=== PATIENT | male | born 1965 | race Two or more races ===

== ENCOUNTER 2016-09-26 13:18 | Emergency (ER) | payer MEDICAID ==
[~2016-09-26] VITALS: Ht 172.7 cm; Wt 81.6 kg
[~2016-09-26 13:18] MED LIST: ATIVAN0.5 MG ORAL; BACTRIM DS TAB1 EAC1 ORAL; BENADRYL25 MG ORAL; KEFLEX500 MG ORAL; NKM
[2016-09-26 13:45] VITALS: BP 128/86
[2016-09-26] MEDS ORDERED: Acetaminophen 500mg (ES) tab ORAL ONE (14:30)
[2016-09-26] MEDS: Metoclopramide 10mg/2ml Inj IM ONE ×2 (14:35→14:39)
--- NOTE | 2016-09-26 15:05 | Emergency Room Report ---
History of Present Illness General Chief Complaint: Headache Source: Patient Present Illness HPI 51-year-old male presents emergency department complaining of intermittent pulsatile 10 out of 10 in severity left-sided headache x2 days. Patient states he had a history of migraines in the past but was never actually diagnosed by neurologist. Patient states he took Motrin yesterday however headache returned. Patient denies sudden onset of the headache he states it was progressive in nature denies nausea, vomiting, recent trauma or fall denies weakness, fevers, chills, neck pain/stiffness or recent illness. Patient denies other associated signs or symptoms. Denies photophobia. Denies CP, Palpitations, LOC, AMS, dizziness, Changes in Vision, Sensation, paresthesias, or a sudden severe headache. Allergies: Coded Allergies: No Known Allergies (Unverified , 05/28/12) Patient History Past Medical History: see triage record Past Surgical History: none Pertinent Family History: none Immunizations: UTD Reviewed Nursing Documentation: PMH: Agreed, PSxH: Agreed Nursing Documentation-PMH Hx Cardiac Problems: No Hx Hypertension: No Hx Pacemaker: No Hx Asthma: No Hx COPD: No Hx Diabetes: No Hx Cancer: No Hx Gastrointestinal Problems: Yes - HEARTBURN Hx Dialysis: No Hx Neurological Problems: No Hx Cerebrovascular Accident: No Hx Seizures: No Review of Systems All Other Systems: negative except mentioned in HPI Physical Exam Vital Signs Date Time Temp Pulse Resp B/P Pulse Ox O2 Delivery O2 Flow Rate FiO2 09/26/16 13:45 98.2 57 15 128/86 99 Room Air Sp02 EP Interpretation: reviewed, normal General Appearance: no apparent distress, alert, GCS 15, non-toxic Head: normocephalic, atraumatic Eyes: bilateral eye PERRL, bilateral eye normal inspection ENT: hearing grossly normal, normal pharynx, no angioedema, normal voice Neck: full range of motion, no meningismus, no bony tend, supple/symm/no masses Respiratory: lungs clear, normal breath sounds, speaking full sentences Cardiovascular #1: regular rate, rhythm, no edema Musculoskeletal: back normal, gait/station normal, normal range of motion, non- tender Neurologic: alert, oriented x3, responsive, motor strength/tone normal, sensory intact, cerebellar normal, normal gait, speech normal, no pronator, other - negative hoffmans, no facial droop, equal farm agent strength. Psychiatric: judgement/insight normal, memory normal, mood/affect normal Skin: normal color, no rash, warm/dry, well hydrated Medical Decision Making PA Attestation Dr. españa is my supervising Physician whom patient management has been discussed with. Diagnostic Impression: Primary Impression: Headache Qualified Codes: R51 - Headache ER Course 51-year-old male presents emergency department complaining of intermittent pulsatile 10 out of 10 in severity left-sided headache x2 days. Patient states he had a history of migraines in the past but was never actually diagnosed by neurologist. Patient states he took Motrin yesterday however headache returned. Patient denies sudden onset of the headache he states it was progressive in nature denies nausea, vomiting, recent trauma or fall denies weakness, fevers, chills, neck pain/stiffness or recent illness. Patient denies other associated signs or symptoms. Denies photophobia. Denies CP, Palpitations, LOC, AMS, dizziness, Changes in Vision, Sensation, paresthesias, or a sudden severe headache. Ddx considered but are not limited to migraine, SAH, Psedudo motor Cerebri, Mass lesion, Cluster CABRAL, Tension CABRAL, Post lumbar puncture CABRAL. Vital signs: are WNL, pt. is afebrile H&PE are most consistent with CABRAL no focal neurological deficit, non-acute onset , no hx of trauma ORDERS: - CT imaging not warranted at this time given pt. HPI and normal neurological examination. ED INTERVENTIONS: - Patient declines Reglan and Tylenol. Patient states that he does not currently have a headache and that he would rather have prescription to take the medication at home if his headache returns. - D/W pt. recommend follow up with neurologist , and to return to the ED promptly with worsening or new symptoms, d/w pt. red flag symptoms to keep an eye out for that would indicate emergent condition and would require return to ED. DISCHARGE: At this time pt. is stable for d/c to home with close outpatient followup . Will provide printed patient care instructions, and any necessary prescriptions. Care plan and follow up instructions have been discussed with the patient prior to discharge. Last Vital Signs Date Time Temp Pulse Resp B/P Pulse Ox O2 Delivery O2 Flow Rate FiO2 09/26/16 13:45 98.2 57 15 128/86 99 Room Air Disposition: HOME, SELF-CARE Condition: Stable Scripts Acetaminophen (Tylenol) 325 Mg Tablet 650 MG ORAL Q6H, #30 TAB 0 Refills Prov: Neetu Gilbert 09/26/16 Metoclopramide Hcl* (REGLAN*) 10 Mg Tablet 10 MG ORAL THREE TIMES A DAY Y for For Headache, #9 TAB Prov: Neetu Gilbert 09/26/16 Patient Instructions: General Headache Without Cause, Migraine Headache Additional Instructions: Take medications as directed. Follow up with NEUROLOGIST within 3 days , also follow up with your primary care doctor. Return sooner to ED if new symptoms occur, or current symptoms become worse. - Please note that this Emergency Department Report was dictated using [employer] kindergarten teacher technology software, occasionally this can lead to erroneous entry secondary to interpretation by the dictation equipment. Neetu Gilbert Sep 26, 2016 15:05
[2016-09-26] MEDS ORDERED: TYLENOL325 MG ORAL (15:06)
[2016-09-26] MEDS ORDERED: REGLAN10 MG ORAL (15:06)
[2016-09-26 15:23] VITALS: BP 132/82
== END 2016-09-26 15:24 | disposition home or self-care (01) ==
LOC: EMR 15:00
DX: R51 Headache (principal)
CPT/HCPCS: 99284; J2765

== ENCOUNTER 2017-03-23 20:01 | Emergency (ER) | payer MEDICAID ==
[~2017-03-23] VITALS: Ht 172.7 cm; Wt 83.5 kg
[~2017-03-23 20:01] MED LIST changes: +REGLAN10 MG ORAL; +TYLENOL325 MG ORAL
[2017-03-23 20:14] VITALS: BP 146/98
[2017-03-23] MEDS ORDERED: PREDNISONE20 MG ORAL (20:28)
[2017-03-23] MEDS ORDERED: ALBUTEROL SULF8.5 GM INH (20:28)
[2017-03-23] MEDS ORDERED: PROMETHAZINE-C118 M1 ORAL (20:28)
[2017-03-23 20:37] VITALS: BP 146/98
--- NOTE | 2017-03-23 22:10 | Emergency Room Report ---
History of Present Illness General Chief Complaint: Upper Respiratory Illness Source: Patient Present Illness HPI 52-year-old male presents to ED for evaluation. States the last 2 days he's been having a cough. Cough is dry. Notes soreness in his chest after coughing. /10, throbbing. Nonradiating. Denies fevers or chills. Denies chest pain. Denies shortness of breath. Denies sick contacts or recent travel. No other aggravating relieving factors. Denies any other associated symptoms Allergies: Coded Allergies: No Known Allergies (Unverified , 05/28/12) Patient History Past Medical History: GERD Past Surgical History: none Pertinent Family History: none Social History: Denies: smoking, alcohol use, drug use Immunizations: UTD Reviewed Nursing Documentation: PMH: Agreed, PSxH: Agreed Nursing Documentation-PMH Past Medical History: No Stated History Hx Cardiac Problems: No Hx Hypertension: No Hx Pacemaker: No Hx Asthma: No Hx COPD: No Hx Diabetes: No Hx Cancer: No Hx Gastrointestinal Problems: Yes - HEARTBURN Hx Dialysis: No Hx Neurological Problems: No Hx Cerebrovascular Accident: No Hx Seizures: No Review of Systems All Other Systems: negative except mentioned in HPI Physical Exam Vital Signs Date Time Temp Pulse Resp B/P (MAP) Pulse Ox O2 Delivery O2 Flow Rate FiO2 03/23/17 20:10 97.5 77 14 146/98 100 Room Air 03/23/17 20:14 100 Sp02 EP Interpretation: reviewed, normal General Appearance: no apparent distress, alert, GCS 15, non-toxic Head: normocephalic, atraumatic Eyes: bilateral eye normal inspection, bilateral eye PERRL ENT: hearing grossly normal, normal pharynx, no angioedema, normal voice Neck: full range of motion, supple/symm/no masses Respiratory: chest non-tender, lungs clear, normal breath sounds, speaking full sentences Cardiovascular #1: regular rate, rhythm, no edema Cardiovascular #2: 2+ carotid (R), 2+ carotid (L), 2+ radial (R), 2+ radial (L) , 2+ dorsalis pedis (R), 2+ dorsalis pedis (L) Gastrointestinal: normal bowel sounds, non tender, soft, non-distended, no guarding, no rebound Rectal: deferred Genitourinary: normal inspection, no CVA tenderness Musculoskeletal: back normal, gait/station normal, normal range of motion, non- tender Neurologic: alert, oriented x3, responsive, motor strength/tone normal, sensory intact, speech normal Psychiatric: judgement/insight normal, memory normal, mood/affect normal, no suicidal/homicidal ideation Reflexes: 3+ bicep (R), 3+ bicep (L), 3+ tricep (R), 3+ tricep (L), 3+ knee (R) , 3+ knee (L) Skin: normal color, no rash, warm/dry, well hydrated Lymphatic: no adenopathy Medical Decision Making Diagnostic Impression: Primary Impression: Bronchitis ER Course Hospital Course 52-year-old male presents to ED complaining of cough Differential diagnoses include: URI, pharyngitis, otitis media, asthma Clinical course Patient placed on stretcher. After initial history, physical exam reveals a middle aged male in no acute distress. Bilateral TM unremarkable. No pharyngeal erythema. No tonsillar exudates. No lymphadenopathy. lungs clear. abdomen soft. Clinical findings consistent with bronchitis. reassuance given Diagnosis - bronchitis Stable and discharged home with Rx Promethazine/codeine, albuterol, prednisone. Instructed to followup with PMD. Return to ED if symptoms recur or worsen Last Vital Signs Date Time Temp Pulse Resp B/P (MAP) Pulse Ox O2 Delivery O2 Flow Rate FiO2 03/23/17 20:37 97.5 77 14 146/98 100 Room Air 100 Status: improved Disposition: HOME, SELF-CARE Condition: Stable Scripts Codeine/Promethazine Hcl* (PROMETHAZINE-CODEINE SYRUP*) 118 Ml Syrup 5 ML ORAL Q4H Y for For Cough, #118 ML 0 Refills Prov: JOE ALLEN M.D. 03/23/17 Prednisone* (PREDNISONE*) 20 Mg Tablet 40 MG ORAL DAILY, #10 TAB Prov: JOE ALLEN M.D. 03/23/17 Albuterol Sulfate* (ALBUTEROL SULFATE MDI*) 8.5 Gm Hfa.aer.ad 2 PUFF INH Q6H, #1 EA 0 Refills Prov: JOE ALLEN M.D. 03/23/17 Referrals: [facility],REFERRING (PCP) Patient Instructions: Acute Bronchitis, [id number] JOE ALLEN M.D. Mar 23, 2017 22:10
== END 2017-03-23 20:37 | disposition home or self-care (01) ==
LOC: EMR 20:18
DX: J40 Bronchitis, not specified as acute or chronic (principal); K21.9 Gastro-esophageal reflux disease without esophagitis
CPT/HCPCS: 99283

== ENCOUNTER 2017-09-17 13:52 | Emergency (ER) | payer MEDICAID ==
[~2017-09-17] VITALS: Ht 172.7 cm; Wt 77.1 kg
[~2017-09-17 13:52] MED LIST changes: +ALBUTEROL SULF8.5 GM INH; +PREDNISONE20 MG ORAL; +PROMETHAZINE-C118 M1 ORAL
[2017-09-17 14:00] VITALS: BP 137/87
--- NOTE | 2017-09-17 14:20 | Emergency Room Report ---
History of Present Illness General Chief Complaint: Abdominal Pain Source: Patient Present Illness HPI Patient 52-year-old male who presented after increased abdominal discomfort. Patient reported having the onset of symptoms approximately 2 days prior to arrival. He had associated nausea on the first day. He says he began having diarrhea. He denies any hematemesis or bloody stools. Patient reports having a improvement in the diarrhea however he continued to have some normal cramping. The pain is moderate in nature. He denies any dizziness or lightheadedness this time. He denies recent antibiotic use or travel.The patient stated that he had been able to tolerate oral fluids. Allergies: Coded Allergies: No Known Allergies (Unverified , 09/17/17) Patient History Past Medical History: see triage record Reviewed Nursing Documentation: PMH: Agreed; PSxH: Agreed Nursing Documentation-PMH Past Medical History: No Stated History Review of Systems All Other Systems: negative except mentioned in HPI Physical Exam Vital Signs Date Time Temp Pulse Resp B/P (MAP) Pulse Ox O2 Delivery O2 Flow Rate FiO2 09/17/17 13:56 97.6 72 18 137/87 98 Room Air 97.5 General Appearance: well appearing, no apparent distress, alert, GCS 15, non- toxic Head: normocephalic, atraumatic ENT: hearing grossly normal, normal voice Neck: full range of motion, supple Respiratory: lungs clear, normal breath sounds, no rhonchi, no respiratory distress, speaking full sentences Cardiovascular #1: normal inspection, normal peripheral pulses, regular rate, rhythm Gastrointestinal: normal inspection Musculoskeletal: normal inspection, back normal, digits/nails normal, no calf tenderness Neurologic: normal inspection, alert, oriented x3, normal gait Psychiatric: normal inspection, mood/affect normal Skin: no rash Medical Decision Making Diagnostic Impression: Primary Impression: Enteritis ER Course Patient presented for abdominal pain. Differential diagnoses included ischemic bowel, appendicitis, perforated viscus, abdominal aortic aneurysm, inferior myocardial infarction, viral gastroenteritis. Patient has a benign exam and does not appear to require any further imaging or laboratory testing at this time. Patient does not appear to have any evidence of surgical illness this time. Patient's urinalysis showed no evidence of urinary infection. Patient's dysuria is likely related to have some colitis. Patient was advised to stop taking any dairy for the next few days. The patient was advised to return if he began having worsening pain persistent vomiting or other concerns.The patient is advised to follow up with primary care doctor in 1-2 days. Patient is advised to return if any worsening condition or if any changes in status that are concerning. This report is dictated with [employer] machine hostler software which may occasionally lead to discrepancies related to use of this software. Labs Test 09/17/17 14:20 Urine Color Yellow Urine Appearance Clear Urine pH 6 (4.5-8.0) Urine Specific [place] 1.020 (1.005-1.035) Urine Protein 1+ (NEGATIVE) Urine Glucose (UA) Negative (NEGATIVE) Urine Ketones Negative (NEGATIVE) Urine Occult Blood 3+ (NEGATIVE) Urine Nitrite Negative (NEGATIVE) Urine Bilirubin Negative (NEGATIVE) Urine Urobilinogen Normal MG/DL (0.0-1.0) Urine Leukocyte Esterase Negative (NEGATIVE) Urine RBC 0-2 /HPF (0 - 0) Urine WBC 0-2 /HPF (0 - 0) Urine Squamous Epithelial Cells None /LPF (NONE/OCC) Urine Bacteria None /HPF (NONE) Last Vital Signs Date Time Temp Pulse Resp B/P (MAP) Pulse Ox O2 Delivery O2 Flow Rate FiO2 09/17/17 14:00 97.5 72 18 137/87 98 Room Air 97.5 Status: improved Disposition: HOME, SELF-CARE Condition: Stable Scripts Dicyclomine Hcl* (DICYCLOMINE HCL*) 10 Mg Capsule 10 MG PO QID, #20 CAP Prov: Carlos Guerin MD 09/17/17 Metronidazole* (FLAGYL*) 500 Mg Tablet 500 MG ORAL THREE TIMES A DAY, #21 TAB 0 Refills Prov: Carlos Guerin MD 09/17/17 Carlos Guerin MD Sep 17, 2017 14:20
[2017-09-17] MEDS ORDERED: Dicyclomine HCl 10mg/5ml oral soln ORAL ONE (14:30)
[2017-09-17 14:49] LABS: APPEARANCE,URINE CLEAR; BILIRUBIN, URINE NEGATIVE (NEGATIVE); GLUCOSE, URINE (UA) NEGATIVE (NEGATIVE); KETONES,URINE NEGATIVE (NEGATIVE); LEUKOCYTE ESTERASE ,URINE NEGATIVE (NEGATIVE); NITRITE,URINE NEGATIVE (NEGATIVE); PH,URINE 6 (4.5-8.0); PROTEIN,URINE 1+ (NEGATIVE); UROBILINOGEN,URINE NORMAL MG/DL (0.0-1.0)
[2017-09-17 14:55] LABS: COLOR,URINE YELLOW
[2017-09-17] MEDS ORDERED: DICYCLOMINE HCL10 MG PO (15:30)
[2017-09-17] MEDS ORDERED: FLAGYL500 MG ORAL (15:30)
[2017-09-17 15:38] VITALS: BP_SYST 129; BP_SYST 137; BP_DIAS 78; BP_DIAS 87
== END 2017-09-17 15:38 | disposition home or self-care (01) ==
LOC: EMR 14:31 → MERGE 14:31 → EMR 15:38
DX: K52.9 Noninfective gastroenteritis and colitis, unspecified (principal)
CPT/HCPCS: 81003; 99284

== ENCOUNTER 2017-10-22 22:10 | Emergency (ER) | payer MEDICAID ==
[~2017-10-22] VITALS: Ht 172.7 cm; Wt 82.6 kg
[2017-10-22 22:10] VITALS: BP 133/76
[~2017-10-22 22:10] MED LIST changes: +BACITRACIN15 GM TOPIC; +DICYCLOMINE HCL10 MG PO; +FLAGYL500 MG ORAL; +no home meds
--- NOTE | 2017-10-22 22:27 | Emergency Room Report ---
History of Present Illness General Chief Complaint: Wound Recheck/Suture Removal Source: Patient Present Illness HPI Is a 52-year-old male with no significant past medical history. He presents with chief complaint of wound check in suture removal. He was here last week and had a glass fell on his leg with laceration. He has a suture placed. He also had some wound was closed with Dermabond. He has no complaint other than a mild swelling to the foot. Denies any other complaint. No fever chills but no nausea no vomiting. Minimal pain. Allergies: Coded Allergies: No Known Allergies (Unverified , 05/28/12) Patient History Past Medical History: see triage record, old chart reviewed Past Surgical History: other Pertinent Family History: none Social History: Denies: smoking Immunizations: other Reviewed Nursing Documentation: PMH: Agreed; PSxH: Agreed Nursing Documentation-PMH Past Medical History: No Stated History Hx Cardiac Problems: No Hx Hypertension: No Hx Pacemaker: No Hx Asthma: No Hx COPD: No Hx Diabetes: No Hx Cancer: No Hx Gastrointestinal Problems: Yes - HEARTBURN Hx Dialysis: No Hx Neurological Problems: No Hx Cerebrovascular Accident: No Hx Seizures: No Review of Systems Eye: Denies: eye pain, blurred vision ENT: Denies: ear pain, nose congestion, throat swelling Respiratory: Denies: cough, shortness of breath Cardiovascular: Denies: chest pain, palpitations Gastrointestinal: Denies: abdominal pain, diarrhea, nausea, vomiting Musculoskeletal: Denies: back pain, joint pain Skin: Denies: rash Neurological: Denies: headache, numbness Endocrine: Denies: increased thirst, increased urine Hematologic/Lymphatic: Denies: easy bruising All Other Systems: negative except mentioned in HPI Physical Exam Vital Signs Date Time Temp Pulse Resp B/P (MAP) Pulse Ox O2 Delivery O2 Flow Rate FiO2 10/22/17 22:12 98.1 74 14 146/91 98 Room Air 98.1 Sp02 EP Interpretation: reviewed, normal General Appearance: well appearing, no apparent distress, alert Head: normocephalic, atraumatic Eyes: bilateral eye PERRL, bilateral eye EOMI ENT: hearing grossly normal, normal pharynx Neck: full range of motion, supple, no meningismus Respiratory: chest non-tender, lungs clear, normal breath sounds Cardiovascular #1: regular rate, rhythm, no murmur Gastrointestinal: normal bowel sounds, non tender, no mass, no organomegaly, no bruit, non-distended Musculoskeletal: back normal, gait/station normal, normal range of motion, other - Right foot: Small soft hematoma underneath the laceration. Site is clean. No infection. Neurologic: alert, oriented x3 Psychiatric: mood/affect normal Skin: warm/dry Procedures Additional Procedure Procedure Narrative Procedure: Suture removal Indication: Scheduled removal Description: I cleaned the area with alcohol pad. I remove the 2 sutures using a small scissor. Patient tolerated procedure without a problem. No complications. Medical Decision Making Diagnostic Impression: Primary Impression: Encounter for wound re-check Additional Impression: Encounter for removal of sutures ER Course Patient here for wound check and suture removal. No evidence of foreign body or infection. We'll discharge home. Last Vital Signs Date Time Temp Pulse Resp B/P (MAP) Pulse Ox O2 Delivery O2 Flow Rate FiO2 10/22/17 22:12 98.1 74 14 146/91 98 Room Air 98.1 Status: improved Disposition: HOME, SELF-CARE Condition: Stable Referrals: [facility],REFERRING (PCP) Patient Instructions: Wound Check Additional Instructions: Keep wound clean. Return for evidence of infection. Follow-up with your doctor as needed. REYNALDO ARVIZU M.D. Oct 22, 2017 22:27
[2017-10-22 22:30] VITALS: BP 146/91
== END 2017-10-22 22:30 | disposition home or self-care (01) ==
LOC: EMR 22:21
DX: S91.311D Laceration without foreign body, right foot, subsequent encounter (principal); W25.XXXD Contact with sharp glass, subsequent encounter
CPT/HCPCS: 99282

== ENCOUNTER → 2018-12-04 | Emergency (ER) | payer MEDICAID ==
[~2018-12-04] VITALS: Ht 170.2 cm; Wt 83.0 kg
[~2018-12-04] MED LIST changes: +Acetaminophen 500mg (ES) tab ORAL ONE; +Ketorolac 30mg Inj IM ONE; +Metoclopramide 10mg/2ml Inj IM ONE
[2018-12-04 13:30] VITALS: BP 130/91
--- NOTE | 2018-12-04 13:56 | Emergency Room Report ---
History of Present Illness General Chief Complaint: Headache Source: Patient Present Illness HPI 53-year-old male presents to the emergency department complaining of 8 out of 10 severity throbbing headache to the top of his head intermittently x1 week. He has a history of migraines. He was getting migraines q 2 months now he is experiencing them q2 weeks. Yesterday his CABRAL responded to naproxen. CABRAL returned today. No fevers/ chills, trauma, or fall. Denies Vomiting reports nausea. progressive onset. Visual changes denies neck pain or stiffness. He reports mental fog he denies dizziness or imbalance he denies slurred speech or weakness of the extremities. Allergies: Coded Allergies: No Known Allergies (Unverified , 05/28/12) Patient History Past Medical History: see triage record Past Surgical History: none Pertinent Family History: none Nursing Documentation-[facility] Past Medical History: No Stated History Hx Cardiac Problems: No Hx Hypertension: No Hx Pacemaker: No Hx Asthma: No Hx COPD: No Hx Diabetes: No Hx Cancer: No Hx Gastrointestinal Problems: Yes - HEARTBURN Hx Dialysis: No Hx Neurological Problems: No Hx Cerebrovascular Accident: No Hx Seizures: No Review of Systems All Other Systems: negative except mentioned in HPI Physical Exam Vital Signs Date Time Temp Pulse Resp B/P (MAP) Pulse Ox O2 Delivery O2 Flow Rate FiO2 12/04/18 13:10 97.3 65 17 130/91 (104) 99 Room Air Sp02 EP Interpretation: reviewed, normal General Appearance: no apparent distress, alert, GCS 15, non-toxic Head: normocephalic, atraumatic Eyes: bilateral eye normal inspection, bilateral eye PERRL, bilateral eye other - no photophobia ENT: hearing grossly normal, normal voice, TMs + canals normal, uvula midline, moist mucus membranes Neck: full range of motion Respiratory: lungs clear, normal breath sounds, speaking full sentences Cardiovascular #1: regular rate, rhythm Musculoskeletal: back normal, gait/station normal, normal range of motion, non- tender Neurologic: alert, oriented x3, responsive, motor strength/tone normal, sensory intact, normal gait, speech normal, no pronator, other - NO facial droop , equal laundrette owner strength, no ataxia , grossly normal Psychiatric: judgement/insight normal Skin: no rash Lymphatic: no adenopathy Medical Decision Making PA Attestation Dr. Cooper is my supervising Physician whom patient management has been discussed with. Diagnostic Impression: Primary Impression: Headache Qualified Codes: R51 - Headache ER Course 53-year-old male presents to the emergency department complaining of 8 out of 10 severity throbbing headache to the top of his head intermittently x1 week. He has a history of migraines. He was getting migraines q 2 months now he is experiencing them q2 weeks. Yesterday his CABRAL responded to naproxen. CABRAL returned today. No fevers/ chills, trauma, or fall. Denies Vomiting reports nausea. progressive onset. Visual changes denies neck pain or stiffness. He reports mental fog he denies dizziness or imbalance he denies slurred speech or weakness of the extremities. Ddx considered but are not limited to migraine, SAH, Pseudomotor Cerebri,, Mass lesion, Cluster CABRAL, Tension CABRAL, Post lumbar puncture CABRAL. Vital signs: are WNL, pt. is afebrile H&PE are most consistent with migraine headache--patient is in no acute distress nontoxic in appearance does not exhibit any focal neurological deficits. ORDERS: - none required at this time, dx is clinical. ED INTERVENTIONS: -Reglan IM -IM Toradol -Tylenol 1g --Pt. 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 ---Per [employer] PRESIDENT/PRACTICE OWNER: PT. ELOPED PRIOR TO RE-ASSESSMENT / DISPOSITION Last Vital Signs Date Time Temp Pulse Resp B/P (MAP) Pulse Ox O2 Delivery O2 Flow Rate FiO2 12/04/18 13:30 97.3 65 17 130/91 99 Room Air Disposition: ELOPED Condition: Improved Scripts No Active Prescriptions or Reported Meds Patient Instructions: Migraine Headache Additional Instructions: Take medications as directed. Follow up with a Primary Care Provider in 3-5 days For a referral to have NEUROLOGIST Evaluation, even if your symptoms have resolved. --Please review list of primary care clinics, if you do not already have a primary care provider Return sooner to ED if new symptoms occur, or current symptoms become worse. - Please note that this Emergency Department Report was dictated using [employer] director school technology software, occasionally this can lead to erroneous entry secondary to interpretation by the dictation equipment. Neetu Gilbert Dec 04, 2018 13:56
[2018-12-04 14:55] VITALS: BP 130/91
== END | disposition left against medical advice (07) ==
LOC: EMR 14:32
DX: R51 Headache (principal)
CPT/HCPCS: 96372; 99283; J1885; J2765

== ENCOUNTER 2019-12-11 14:22 | Outpatient (CLI) | payer MEDICAID ==
[~2019-12-11] VITALS: Ht 170.2 cm; Wt 83.0 kg
[~2019-12-11 14:22] MED LIST changes: -Acetaminophen 500mg (ES) tab ORAL ONE; -Ketorolac 30mg Inj IM ONE; -Metoclopramide 10mg/2ml Inj IM ONE
[2019-12-11 14:41] VITALS: BP 105/78
--- NOTE | 2019-12-11 17:30 | Consultation ---
DATE OF CONSULTATION: 12/11/2019 CONSULTING PHYSICIAN: Alejandro James MD. CHIEF COMPLAINT: Abdominal pain, chronic GERD, constipation, HISTORY OF PRESENT ILLNESS: This is a very pleasant 54-year-old male who is having chronic GERD symptoms who is taking medication for it. Also has severe constipation. He is having it for many years. He is trying vmum-etf-tztkvot MiraLAX, fxut-inz-yigpvjq Colace, and also to the point that he has to do suppositories and enemas to have a bowel movement. PAST MEDICAL HISTORY: 1. GERD. 2. Hypertension. 3. Hemorrhoids. 4. BPH. PAST SURGICAL HISTORY: Right knee surgery. MEDICATIONS: Please see medication reconciliation list. FAMILY HISTORY: Noncontributory. SOCIAL HISTORY: Patient denies any tobacco, alcohol, or drug abuse. ALLERGIES: No known drug allergies. REVIEW OF SYSTEMS: Positive for abdominal pain, GERD, and constipation. PHYSICAL EXAMINATION: VITAL SIGNS: Temperature 97.5, blood pressure 105/78, pulse is 71, respirations 20. HEENT: Normocephalic, atraumatic. Sclerae anicteric. NECK: Supple. No evidence of obvious lymphadenopathy. CARDIOVASCULAR: Regular rate and rhythm. Plus S1-S2. LUNGS: Clear to auscultation bilaterally. ABDOMEN: Positive bowel sounds. Soft and nontender. No rebound. No guarding. No peritoneal sign. EXTREMITIES: No cyanosis, no clubbing, no edema. ASSESSMENT AND PLAN: This is a 54-year-old male with complaint of severe constipation. According to him, as I mentioned, he has to use the getz-bsv-etnjifj medication. He has to use prune juice, enemas, and Dulcolax suppositories to have a bowel movement and this is going on for many years. Patient most probably needs a colonoscopy. Also we gave him prescription for Trulance to try with sample. Hopefully the insurance will cover it. Given chronic GERD, patient will benefit from endoscopy, so we will plan to schedule him for both endoscopy and colonoscopy when the authorization is obtained. Alejandro James M.D. DR: HESHAM JOB#: [id number] CC:
[2019-12-12] MEDS ORDERED: OXYBUTYNIN CHLOR5 M1 ORAL (08:53)
[2019-12-12] MEDS ORDERED: FLOMAX0.4 MG ORAL (08:53)
== END 2019-12-11 16:22 | disposition home or self-care (01) ==
LOC: PAN 14:22
DX: R10.9 Unspecified abdominal pain (principal); K21.9 Gastro-esophageal reflux disease without esophagitis; K59.00 Constipation, unspecified; I10 Essential (primary) hypertension
CPT/HCPCS: G0463

== ENCOUNTER 2020-01-06 14:01 | Outpatient (CLI) | payer MEDICAID ==
[~2020-01-06 14:01] MED LIST changes: +FLOMAX0.4 MG ORAL; +OXYBUTYNIN CHLOR5 M1 ORAL
--- NOTE | 2020-01-06 14:53 | General Progress Note ---
Subjective ROS Limited/Unobtainable: Yes Allergies: Coded Allergies: No Known Allergies (Unverified , 05/28/12) Objective General Appearance: alert EENT: normal ENT inspection Neck: supple Cardiovascular: normal rate Abdomen: normal bowel sounds, non tender, soft Extremities: non-tender Assessment/Plan Assessment/Plan: 1. GERD. 2. Hypertension. 3. Hemorrhoids. 4. BPH. 5. chronic constipation no response to over the counter meds Trulance gave him abd cramps plan EGD and colonoscopy next week trial of Alejandro Snyder MD Jan 06, 2020 14:53
== END 2020-01-06 16:01 | disposition home or self-care (01) ==
LOC: PAN 14:01
DX: K21.9 Gastro-esophageal reflux disease without esophagitis (principal); I10 Essential (primary) hypertension; K64.9 Unspecified hemorrhoids; N40.0 Benign prostatic hyperplasia without lower urinary tract symptoms; K59.09 Other constipation

== ENCOUNTER 2020-01-28 10:40 | Outpatient (CLI) | payer MEDICAID ==
[2020-01-28 11:00] VITALS: BP 117/87
[2020-01-28] MEDS ORDERED: BP MED (11:02)
--- NOTE | 2020-01-28 11:16 | General Progress Note ---
Subjective ROS Limited/Unobtainable: Yes Allergies: Coded Allergies: No Known Allergies (Unverified , 05/28/12) Objective Last 24 Hour Vital Signs Date Time Temp Pulse Resp B/P (MAP) Pulse Ox O2 Delivery O2 Flow Rate FiO2 01/28/20 11:00 97.8 69 16 117/87 General Appearance: alert EENT: normal ENT inspection Neck: supple Cardiovascular: normal rate Respiratory/Chest: decreased breath sounds Abdomen: normal bowel sounds, non tender, soft Extremities: non-tender Assessment/Plan Assessment/Plan: one colon polyp gastritis HP neg SIBO Xifaxan align repeat colon 5 years miralax and colace Alejandro James MD Jan 28, 2020 11:16
== END 2020-01-28 12:40 | disposition home or self-care (01) ==
LOC: PAN 10:40
DX: K63.5 Polyp of colon (principal); K29.70 Gastritis, unspecified, without bleeding; K56.609 Unspecified intestinal obstruction, unspecified as to partial versus complete obstruction
CPT/HCPCS: 99212

== ENCOUNTER 2020-02-03 13:08 | Outpatient (CLI) | payer MEDICAID ==
[~2020-02-03 13:08] MED LIST changes: +BP MED
[2020-02-03 14:42] VITALS: BP 121/73
--- NOTE | 2020-02-03 15:29 | General Progress Note ---
Subjective ROS Limited/Unobtainable: Yes Allergies: Coded Allergies: No Known Allergies (Unverified , 05/28/12) Objective Last 24 Hour Vital Signs Date Time Temp Pulse Resp B/P (MAP) Pulse Ox O2 Delivery O2 Flow Rate FiO2 02/03/20 14:42 97.7 67 16 121/73 99 General Appearance: alert EENT: normal ENT inspection Neck: supple Cardiovascular: normal rate Abdomen: normal bowel sounds, non tender, soft Extremities: non-tender Assessment/Plan Assessment/Plan: Assessment/Plan Assessment/Plan: one colon polyp gastritis HP neg SIBO on Xifaxan align repeat colon 5 years send labs [address] given abd pain and no finding on EGD and colonoscopy Alejandro James MD Feb 03, 2020 15:29
== END 2020-02-03 15:08 | disposition home or self-care (01) ==
LOC: PAN 13:08
DX: K63.5 Polyp of colon (principal); K29.70 Gastritis, unspecified, without bleeding; K56.609 Unspecified intestinal obstruction, unspecified as to partial versus complete obstruction
CPT/HCPCS: 99212

== ENCOUNTER 2020-02-10 12:15 | Outpatient (CLI) | payer MEDICAID ==
--- NOTE | 2020-02-10 15:18 | General Progress Note ---
Subjective ROS Limited/Unobtainable: Yes Allergies: Coded Allergies: No Known Allergies (Unverified , 05/28/12) Objective General Appearance: alert EENT: normal ENT inspection Neck: supple Cardiovascular: normal rate Respiratory/Chest: decreased breath sounds Abdomen: normal bowel sounds, non tender, soft Extremities: non-tender Assessment/Plan Assessment/Plan: Assessment/Plan Assessment/Plan: one colon polyp gastritis HP neg SIBO on Xifaxan align repeat colon 5 years send labs>>> reviewed plan CT given abd pain and no finding on EGD and colonoscopy Alejandro James MD Feb 10, 2020 15:18
== END 2020-02-10 14:15 | disposition home or self-care (01) ==
LOC: PAN 12:15
DX: K63.5 Polyp of colon (principal); K29.70 Gastritis, unspecified, without bleeding; B96.81 Helicobacter pylori [H. pylori] as the cause of diseases classified elsewhere; K56.609 Unspecified intestinal obstruction, unspecified as to partial versus complete obstruction
CPT/HCPCS: 99212